=== PATIENT | female | born 1985 | race Caucasian/White ===

== ENCOUNTER 2022-12-15 08:48 | Outpatient (AMB) | payer OTHER, SELFPAY ==
--- NOTE | 2022-12-15 08:51 | A.OFFPC_ITS ---
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: No Accompanied by: Self / Same As Patient Allergies morphine Adverse Reaction (Intermediate, Verified 12/15/22 09:07) Nausea Medication List - Last Reconciled 12/15/22 by Anita Fountain MD acyclovir 400 mg PO BID medroxyprogesterone (Depo-Provera) 150 mg IM [id number] Tobacco use date assessed: 12/15/22 Dental Screening Dental Screen Date: 12/15/22 Did you have a dental visit in the last 12 months?: No Did you have a dental problem in the last 6 months where you did not have access to dental care?: No Was dental information given to patient?: Patient has dentist HPI HPI Comments History of Present Illness Details This is a 37-year-old female with obesity, uncontrolled hypertension, anxiety and history of herpes simplex virus that comes today complaining of daytime sleepiness and severely dozing off while sitting and reading, watching TV, lying down to rest in the afternoon when circumstances permit and sitting quietly after lunch without alcohol with an [place] score Scale of 12 and I will order a sleep study. She has been having elevated blood pressure for quite some time but has ignore it. She is a smoker and was advised to quit. She was also advised on cut down on drinking alcohol. I will start her on losartan and I will start her on sertraline for her anxiety. She is obese with a BMI of 34.8 and was advised to diet and exercise to reach BMI goal less than 30. Has occasional headaches and palpitations. Has profuse sweating. At present +thyroid is has been stable with acyclovir daily for suppression. PFSH Surgical History No pertinent past surgical history Family History Mother Diabetes Hypertension Father Hypertension Anxiety Mental health disorder Social History Housing: Apartment Alcohol intake: current Alcohol intake frequency: a few times a week Alcohol type: beer Patient Tobacco Use Status: Current everyday Tobacco user Tobacco use type: Cigarette Cigarette Packs Per Day: 1 e-Cigarette/Vaping Use: Never Used Second Hand Smoke Exposure: No service: No Current occupational status: employed Current occupational exposures/hazards: No Cognitive needs: No Hearing needs: No Vision needs: Yes Questionnaire PHQ-9 Over the last 2 weeks, how often have you been bothered by any of the following problems? 1. Little interest or pleasure in doing things: not at all 2. Feeling down, depressed, or hopeless: not at all 3. Trouble falling or staying asleep, or sleeping too much: not at all 4. Feeling tired or having little energy: not at all 5. Poor appetite or overeating: not at all 6. Feeling bad about yourself - or that you are a failure or have let yourself or your family down: not at all 7. Trouble concentrating on things, such as reading the newspaper or watching television: not at all 8. Moving or speaking so slowly that other people could have noticed. Or the opposite - being so fidgety or restless that you have been moving around a lot more than usual: not at all 9. Thoughts that you would be better off or of hurting yourself in some way: not at all Total score: 0 Depression Screening Interpretation: Negative 64034 - PHQ-9 Billing: Yes Source: Developed by Drs. Sánchez Jama, Cheryl Yates, Praful Posada and colleagues, with an educational varsha from [employer]. Thrive Questionnaire Date Thrive assessed: 12/15/22 I am a: Patient What is your living situation today?: I have a steady place to live Within the past 12 months, did the food you bought not last and you didn't have the money to get more?: Never true Within the past 12 months, did you worry whether your food would run out before you got money to buy more?: Never true Do you have trouble paying for medicines?: No Do you have trouble getting transportation to medical appointments?: No Do you have trouble paying your heating and electricity bill?: No Do you have trouble taking care of your child, family member or friend?: No Do you have trouble with day-to-day activities such as bathing, preparing meals, shopping, managing finances, etc.?: No Are you currently unemployed and looking for a job?: No Are you interested in more education?: No Please select the resources that you would like help with: None Currently or been in a relationship where the following occur: no concerns reported AUDIT C Alcohol Use Questionnaire (AUDIT-C) 1. How often do you have a drink containing alcohol?: 2-3 times a week 2. How many drinks containing alcohol do you have on a typical day when you are drinking?: 1 or 2 3. How often do you have six or more drinks on one occasion?: Never Total Score: 3 Score Reviewed/Action Taken: Yes WADE-7 AMB Questionnaire WADE-7 Date WADE - 7 assessed: 12/15/22 Feeling nervous, anxious, or on edge: 3 = Nearly every day Not being able to stop or control worryin = Several days Worrying too much about different things: 2 = More than half the days Trouble relaxin = Not at all Being so restless that it is hard to sit still: 0 = Not at all Becoming easily annoyed or irritable: 1 = Several days Feeling afraid as if something awful might happen: 1 = Several days Total WADE-7 score (0-4 normal; 5-9 mild; 10-14 moderate; 15-21 severe): 8 Source: Developed by Drs. Sánchez Jama, Cheryl Yates, Praful Posada and colleagues, with an educational varsha from [employer]. WADE-7 Assessment Billing WADE-7 Assessment Tool: WADE-7 Assessment 94128 Review of Systems Const All systems reviewed & are unremarkable except as noted in HPI and below Eyes Reports no additional complaints, Denies change in vision and Denies other visual disturbances Card Denies chest pain at rest, Denies chest pain with activity, Denies edema, Denies irregular heart rhythm, Denies claudication, Denies dyspnea, Denies dyspnea on exertion, Denies orthopnea, Denies paroxysmal nocturnal dyspnea and Denies slow heart rate Resp Denies cough, Denies dyspnea and Denies dyspnea on exertion GI Denies abdominal pain, Denies change in bowel habits, Denies excessive flatus, Denies nausea and Denies vomiting Denies urinary incontinence, Denies urinary hesitancy and Denies urinary urgency Musc Denies abnormal gait, Denies atrophy, Denies deformity and Denies limited range of motion Skin/Breast Denies bleeding lesions, Denies changing lesions and Denies rash Neuro Denies abnormal gait and Denies lack of coordination Psych Reports anxiety Physical exam (Primary Care) Vital Signs: Last Vital Signs BP 178/120 H 12/15/22 08:52 BMI result Body Mass Index 34.8 Tobacco/Smoking Status: Tobacco use Status Tobacco use date assessed 12/15/22 12/15/22 08:59 Patient Tobacco Use Status Current everyday Tobacco 12/15/22 08:59 Tobacco use type Cigarette 12/15/22 08:59 e-Cigarette/Vaping Use Never Used 12/15/22 08:59 PHQ-9: PHQ-9 Score PHQ-9: Total score 0 12/15/22 09:15 Depression Screening Interpretation: Negative Thrive Assessment: Date of Thrive Assessment Date Thrive assessed 12/15/22 12/15/22 08:59 Currently or been in a relationship where the following occur: no concerns reported Eyes General: appearance normal, both eyes and all related structures Eyelids: Yes eyelids normal Conjunctivae: conjunctivae normal Neck Neck: Yes normal visual inspection and Yes supple Resp Effort & Inspection: normal respiratory effort Auscultation: clear to auscultation bilaterally Cardio Jugular venous distension: no JVD Rate: regular rate Rhythm: regular rhythm Heart sounds: S1 normal heart sound present and S2 normal heart sound present Extrem General: Yes full ROM Assessment and Plan Assessment & Plan (1) Uncontrolled hypertension: Code(s): I10 - Essential (primary) hypertension Plan: Start losartan. Blood pressure will be recheck in 3 weeks by nurse navigator. Labs ordered. Ultrasound renal ordered to rule out adult polycystic kidney disease. Doppler ordered to rule out renal artery stenosis. Blood pressure goal is equal or less than 130/80. (2) Daytime sleepiness: Code(s): R40.0 - Somnolence Plan: Home sleep study ordered. (3) WADE (generalized anxiety disorder): Code(s): F41.1 - Generalized anxiety disorder Plan: Start sertraline. (4) HSV (herpes simplex virus) infection: Code(s): B00.9 - Herpesviral infection, unspecified Plan: Continue acyclovir for chronic suppression. Orders: Orders Aldost/Renin Today I10 - Essential (primary) hypertension Catecholamines, Frac., Plasma Today I10 - Essential (primary) hypertension Catecholamines,Frac.,Random Ur Today I10 - Essential (primary) hypertension Comprehensive [place]. Panel Fast Today I10 - Essential (primary) hypertension Lipid Panel Today E66.9 - Obesity, unspecified Metanephrines, Plasma Today I10 - Essential (primary) hypertension Renin Today I10 - Essential (primary) hypertension Thyroid Stimulating Hormone Today I10 - Essential (primary) hypertension Metanephrines, Random Urine Today I10 - Essential (primary) hypertension ECG 12 lead EKG Today I10 - Essential (primary) hypertension Complete Blood Count Auto Diff Today E66.9 - Obesity, unspecified US renal BI Today I10 - Essential (primary) hypertension US renal doppler Today I10 - Essential (primary) hypertension RT home sleep study Today R40.0 - Somnolence Microalbumin, Random (w Creat) Today E11.9 - Type 2 diabetes mellitus without complications, I10 - Essential (primary) hypertension Medications: New sertraline 25 mg PO DAILY 90 days 90 tabs 1RF F41.1 - Generalized anxiety disorder losartan 25 mg PO DAILY 90 days 90 tabs 1RF I10 - Essential (primary) hyperte nsion Coding Level of Care Code New Pt Level 4 (61456) Diagnoses Uncontrolled hypertension I10 Daytime sleepiness R40.0 WADE (generalized anxiety disorder) F41.1 HSV (herpes simplex virus) infection B00.9 Additional Codes WADE-7 Assessment Billing - WADE-7 Assessment Tool: WADE-7 Assessment 82125 ([id number]) Time Spent (min) 25
[2022-12-15 08:52] VITALS: BP 178/120; BMI 34.8
[2022-12-15 10:06] VITALS: BP 180/100
== END 2022-12-15 09:25 | disposition home or self-care (01) ==
PROVIDERS: PCP Internal Medicine; Visit Provider Internal Medicine
DX: I10 Essential (primary) hypertension (principal); R40.0 Somnolence; F41.1 Generalized anxiety disorder; B00.9 Herpesviral infection, unspecified
CPT/HCPCS: 99204

== ENCOUNTER 2022-12-15 09:48 | Outpatient (REF) | payer OTHER, SELFPAY ==
[2022-12-15 10:30] LABS: MANUAL DIFF FLAG NO
[2022-12-15 11:30] LABS: Basophils Absolute Auto 0.1 X10*3/uL (0.0-0.2); Basophils Percent Auto 0.7 % (0-2); Eosinophils Absolute Auto 0.2 X10*3/uL (0.0-0.4); Eosinophils Percent Auto 1.6 % (0-4); Hematocrit 47.1 % (37.0-47.0); Hemoglobin 15.9 g/dl (12.0-16.0); Imm Gran Abs Auto 0.09 X10*3/uL (0.00-0.03); Lymphocytes Absolute Auto 1.7 X10*3/uL (1.2-4.9); Lymphocytes Percent Auto 18.4 % (20-40); Mean Corpuscular HGB Conc 33.8 g/dl (31.0-35.0); Mean Corpuscular Hemoglobin 31.6 pg (27.0-33.0); Mean Corpuscular Volume 93.6 fL (80.0-98.0); Mean Platelet Volume 9.4 fL (9.4-12.3); Monocytes Absolute Auto 0.6 X10*3/uL (0.1-1.2); Monocytes Percent Auto 6.2 % (2-11); Neutrophils Absolute Auto 6.8 x10*3/uL (2.0-8.3); Neutrophils Percent Auto 72.1 % (45-73); Platelet Count 304 X10*3/uL (160-400); Red Blood Count 5.03 X10*6/uL (4.20-5.50); Red Cell Distribution Width 13.1 % (11.0-16.0); White Blood Count 9.4 X10*3/uL (4.8-10.8)
[2022-12-15 12:53] LABS: Alanine Aminotransferase 51 U/L (0-31); Albumin Level 4.2 g/dL (3.5-5.0); Alkaline Phosphatase 79 U/L (39-117); Anion Gap 14 (12-20); Aspartate Amino Transferase 41 U/L (5-31); Bilirubin Total 0.3 mg/dL (0.0-1.0); Blood Urea Nitrogen 12 mg/dL (9-16); Calcium 9.6 mg/dL (8.4-10.2); Carbon Dioxide 23 mmol/L (22-29); Chloride 107 mmol/L (96-108); Cholesterol 237 mg/dL (<200); Estimated Glomerular Filt Rate > 60; Glucose Fasting 102 mg/dL (60-99); HDL Cholesterol 50 mg/dL (>40); LDL Cholesterol Calculated 145 mg/dL (<100); Potassium 4.4 mmol/L (3.3-5.1); Sodium 140 mmol/L (135-145); Total Protein 7.1 g/dL (6.5-8.0); Triglycerides 210 mg/dL (<150)
[2022-12-15 12:59] LABS: Thyroid Stimulating Hormone 2.97 uIU/mL (0.32-4.0)
[2022-12-15 13:07] LABS: Creatinine Urine 154.13 mg/dL
[2022-12-19 13:34] LABS: Metanephrine, Free 48 pg/mL (<=57); Normetanephrines, Free 142 pg/mL (<=148); Total Metanephrine, Free 190 pg/mL (<=205)
[2022-12-22 12:59] LABS: Catecholamine,Calc Tot.(E+NE) 88 mcg/g cr (9-74); Creatinine Random Urine 123 mg/dL (20-275); Creatinine, Random Urine 123 mg/dL (20-275); Dopamine, Random Urine 405 mcg/g cr (40-390); Epinephrine, Random Urine 17 mcg/g cr (2-16); Metanephrine, Free Rand Ur 116 mcg/g cr (32-134); Norepinephrine, Random Urine 71 mcg/g cr (7-65); Normetanephrine, Free Rand Ur 609 mcg/g cr (67-390); Total Metanephrine, Free RU 725 mcg/g cr (94-445)
[2022-12-22 15:52] LABS: Aldosterone/Renin Ratio 10.3 Ratio (0.9-28.9); Plasma Renin Activity 0.78 ng/mL/h (0.25-5.82)
[2022-12-31 14:28] LABS: Catecholamine Frac, Total 591 pg/mL
== END 2022-12-15 09:49 | disposition home or self-care (01) ==
LOC: HO.LAB 09:48
PROVIDERS: PCP Internal Medicine; Visit Provider Internal Medicine
DX: E66.9 Obesity, unspecified (principal); E11.9 Type 2 diabetes mellitus without complications; I10 Essential (primary) hypertension
CPT/HCPCS: 36415; 80053; 80061; 82043; 82088; 82384; 83835; 84244; 84443; 85025

== ENCOUNTER 2023-02-28 09:01 | Emergency (ER) | payer OTHER, SELFPAY ==
--- NOTE | ~2023-02-28 | XR_ITS ---
EXAMINATION: XR LEFT FOOT XR LEFT ANKLE CLINICAL INFORMATION: Pain and trauma status post fall COMPARISON: None available. TECHNIQUE: PA, lateral, and oblique views of the left foot and left ankle were acquired. FINDINGS: There is no evidence of acute fracture or subluxation of the left foot or the left ankle. No bone lesions are evident. The talar dome and ankle mortise are intact. An os trigonum is incidentally noted. XR/XR foot LT min 3V IMPRESSION: No acute fracture or subluxation of the left foot or left ankle.
--- NOTE | ~2023-02-28 | XR_ITS ---
EXAMINATION: XR LEFT FOOT XR LEFT ANKLE CLINICAL INFORMATION: Pain and trauma status post fall COMPARISON: None available. TECHNIQUE: PA, lateral, and oblique views of the left foot and left ankle were acquired. FINDINGS: There is no evidence of acute fracture or subluxation of the left foot or the left ankle. No bone lesions are evident. The talar dome and ankle mortise are intact. An os trigonum is incidentally noted. XR/XR ankle LT min 3V IMPRESSION: No acute fracture or subluxation of the left foot or left ankle.
[2023-02-28 09:05] VITALS: BP 163/118; PULSE 83; RESP 19; TEMP 36.6; O2SAT 98; BMI 33.5
[2023-02-28] MEDS: Acetaminophen 325 MG TABLET 975 MG PO (09:24)
--- NOTE | 2023-02-28 09:25 | ED_ITS ---
HPI - Extremity Injury (Lower) General Chief Complaint: Extremity Injury, Lower Stated Complaint: L Ankle Injury 02/27/23 Time Seen by Provider: 02/28/23 09:12 Source: patient Mode of arrival: ambulatory Limitations: no limitations History of Present Illness HPI Narrative: Patient is a 37-year-old female presenting to the emergency department with complaint of left lateral ankle pain and swelling since last night. States that she was cleaning of her living room last night and tripped over a dog toy, twisting her ankle. States pain was manageable and went to bed last night but when she woke this morning pain and swelling have increased. She took 400 mg ibuprofen prior to arrival. Denies any numbness, tingling, or weakness to foot. MD complaint: ankle injury Onset (ago): hour(s) Injury: Left: ankle Type of Injury: unknown Place: home Severity: moderate Relieving factors: rest Exacerbating factors: movement and palpation Context: other (Tripped over a dog toy) Associated symptoms: swelling and able to partially bear weight Other symptoms: none Treatments prior to arrival: NSAIDS Related Data Home Medications Medication Instructions Recorded Confirmed medroxyprogesterone 150 mg/mL 150 mg IM [id number] 12/15/22 12/15/22 intramuscular suspension (Depo-Provera) Previous Rx's Medication Instructions Recorded atorvastatin 10 mg tablet 10 mg PO BEDTIME 90 days #90 tabs 12/15/22 losartan 25 mg tablet 25 mg PO DAILY 90 days #90 tabs 12/15/22 sertraline 25 mg tablet 25 mg PO DAILY 90 days #90 tabs 12/15/22 acyclovir 400 mg tablet 400 mg PO BID 90 days #180 tabs 12/20/22 Allergies Allergy/AdvReac Type Severity Reaction Status Date / Time morphine AdvReac Intermediate Nausea Verified 02/28/23 09:05 Review of Systems Review of Systems: As per HPI. Yes all other systems are reviewed and are negative Constitutional: Constitutional: Reports as per HPI PMFSH Past Medical History Surgical History No pertinent past surgical history Family History Family History Mother Diabetes Hypertension Father Hypertension Anxiety Mental health disorder Social History Social History Housing: Apartment Alcohol intake: current Alcohol intake frequency: a few times a week Alcohol type: beer Patient Tobacco Use Status: Current everyday Tobacco user Tobacco use type: Cigarette Cigarette Packs Per Day: 1 e-Cigarette/Vaping Use: Never Used Second Hand Smoke Exposure: No Advance Directives: No Advance Directives Information Provided: No service: No Current occupational status: employed Current occupational exposures/hazards: No Cognitive needs: No Hearing needs: No Vision needs: Yes Physical Exam Vital Signs: Vital Signs: Last Vital Signs Temp 98 F 02/28/23 09:05 Pulse 83 02/28/23 09:05 Resp 19 02/28/23 09:05 BP 163/118 H 02/28/23 09:05 Pulse Ox 98 02/28/23 09:05 O2 Del Method Room Air 02/28/23 09:05 BMI result Body Mass Index 33.5 Vital signs have been reviewed and appear to be correct. Blood pressure elevated. Heart rate normal. Respiratory rate normal. Temperature normal. Oxygen saturation normal. Const: General: cooperative, healthy appearing and no acute distress Orientation/consciousness: oriented to person, oriented to place, oriented to time and patient oriented x3 Limitations: no limitations HEENT: Head: Yes normocephalic and Yes atraumatic Ears: external ears normal General nose exam: Normal external nose present Face and sinus: Yes face symmetric Mouth: oropharynx normal and moist mucous membranes Throat: Yes uvula midline Eyes: Pupils: Equal, round and reactive pupils present Neck: Neck: Yes normal visual inspection and Yes supple Resp: Effort & Inspection: normal respiratory effort and able to speak in complete sentences Auscultation: clear to auscultation bilaterally Cardio: Rate: regular rate Rhythm: regular rhythm Heart sounds: S1 normal heart sound present and S2 normal heart sound present Skin: General skin exam: elasticity normal and turgor normal Neuro: General: oriented to person, oriented to place, oriented to time, patient oriented x3, moves all extremities, no focal motor deficits and CN's II- XI intact bilaterally Cranial nerves: Yes Equal, round and reactive pupils present Cognition (Neuro): normal cognition Extrem: General: Yes full ROM, Yes no pedal edema and Yes no calf tenderness Left lower extremity: ankle Details: tenderness Location: of the lateral malleolus, swelling Details: laterally and normal ROM; no ecchymosis and foot Details: normal capillary refill, tenderness Location: of the dorsal foot Location: laterally, toes with normal ROM and vascular exam Details: dorsalis pedis pulse present and posterior tibial pulse present Psych: Mental Status: mental status grossly normal Affect: normal affect Thought process: Normal thought process present Medications Administered Discontinued Medications Generic Name Dose Route Start Last Admin Trade Name Hope PRN Reason Stop Dose Admin Acetaminophen 975 mg 02/28/23 09:15 02/28/23 09:24 Acetaminophen 325 Mg Tablet PO 02/28/23 09:16 975 mg ONCE ONE Administration Medical Decision Making Medical Decision Making MDM Narrative: Patient is a 37-year-old female presenting to the emergency department with complaint of left lateral ankle pain and swelling since last night. On exam patient is awake, A+Ox3, hypertensive, VS otherwise WNL, afebrile, normal neurological exam without focal deficits, physical exam findings as above. Given reported symptoms and physical exam findings, initial differential includes contusion, strain, sprain, fracture. X-ray notable for no evidence of fracture to left ankle or foot. My interpretation is in agreement with the radiologist's interpretation. Ordered ankle stirrup as well as crutches and crutch teaching. Advised patient to alternate Tylenol and ibuprofen as needed for pain, elevate foot while at rest and apply ice intermittently throughout the day. Instructed patient to follow-up with PCP. Will refer to Ortho for any ongoing symptoms. Return precautions discussed at bedside. Patient verbalized understanding of and agreement with plan. Differential Diagnosis Differential Diagnoses: The differential diagnosis associated with the presentation includes As per MDM. Independent Interpretation I performed an independent interpretation of an: Plain X-Ray Interpretation: No evidence of fracture to left ankle or foot Radiology Impression Discussion of test interpretation with radiology: I have reviewed the radiologist's reading. Radiologist Impression: XR/XR foot LT min 3V IMPRESSION: No acute fracture or subluxation of the left foot or left ankle. External Record Review External record reviewed: Inpatient record, Office record and Outpatient record Discharge Plan Discharge Clinical Impression: Left ankle sprain Qualifiers: Encounter type: initial encounter Involved ligament of ankle: unspecified ligament Qualified Code(s): S93.402A - Sprain of unspecified ligament of left ankle, initial encounter Patient Disposition: Home, Self-Care Instructions: Ankle Sprain (DC), Crutch Instructions (ED), Ankle Stirrup Splint (ED), R.I.C.E. Treatment (ED) Additional Instructions: You have been evaluated in the emergency department today for ankle pain. Your evaluation did not find evidence of medical conditions requiring emergent intervention at this time. Your pain is due to an ankle sprain. We have provided crutches for you to use while your ankle heals. Please rest, ice, and elevate your ankle, and resume normal activities as tolerated. We recommend you take 600mg ibuprofen every 6 hours or 650mg Tylenol every 6 hours as needed for pain. If needed you can alternate these medications as they take 1 medication every 3 hours. For instance at noon take ibuprofen, then at 3:00 p.m. take Tylenol, then at 6:00 p.m. take ibuprofen. Please schedule an appointment for follow-up with your primary care provider this week. Return to the emergency department if you experience worsening pain, numbness, tingling, change of color in your foot, or any other concerning symptoms. Prescriptions: No Action atorvastatin 10 mg tablet 10 mg PO BEDTIME 90 Days Qty: 90 0RF acyclovir 400 mg tablet 400 mg PO BID 90 Days Qty: 180 1RF medroxyprogesterone [Depo-Provera] 150 mg/mL suspension 150 mg IM [id number] sertraline 25 mg tablet 25 mg PO DAILY 90 Days Qty: 90 1RF losartan 25 mg tablet 25 mg PO DAILY 90 Days Qty: 90 1RF Stand Alone Forms: Work/School Release
--- NOTE | 2023-02-28 10:09 | PC.NURSE ---
Addendum entered by Vesta Swann RN 02/28/23 10:12: pt awaiting ankle xray not cxr. Original Note: patient a&ox3, awaiting cxr and provider, call pena within reach, will continue to monitor.
== END 2023-02-28 10:30 | disposition home or self-care (01) ==
PROVIDERS: Emergency Provider Emergency Medicine; PCP Internal Medicine
DX: S93.402A Sprain of unspecified ligament of left ankle, initial encounter (principal); W22.8XXA Striking against or struck by other objects, initial encounter; Y93.E9 Activity, other interior property and clothing maintenance; Y92.039 Unspecified place in apartment as the place of occurrence of the external cause; Y99.9 Unspecified external cause status
CPT/HCPCS: 73610; 73630; 99283

== ENCOUNTER 2025-01-22 09:01 | Outpatient (AMB) | payer OTHER, SELFPAY ==
[2025-01-22 09:15] VITALS: BMI 30.4
--- NOTE | 2025-01-22 09:15 | MHC.OFFVIS ---
Vital Signs 01/22/25 09:15 Height 5 ft 8 in Weight 200 lb BMI 30.4 Intake Visit Reasons: right big toe ingroing toe nail Intake Note: Yesica is a 39 year old female who presents today as a new patient for an evaluation of her ingrown toe nail of the right hallux. She states this occurred within a couple of weeks after getting a pedicure. Pt mentions she had removed the ingrown nail herself however she complains of pain located on the toe nail. She has tried Epson salt soaks and ibuprofen as needed for her pain. Allergies morphine Adverse Reaction (Intermediate, Verified 01/22/25 09:15) Nausea Medication List - Last Reconciled 01/22/25 by Ya Velasco DPM medroxyprogesterone (Depo-Provera) 150 mg IM [id number] HPI Comments Details: The patient is a 39-year-old female with a past medical history as seen below presenting with right hallux pain and discomfort due to an ingrown toenail. The issue began in August following a pedicure where the nail was improperly cut, leading to pain and the development of an ingrown toenail to bilateral nail border. The patient attempted self-care measures such as soaking and cutting the nail at home, with the effectiveness on the medial border but ineffective to the lateral border. The patient reports that the nail has become thickened and painful, particularly in the middle, and she has been unable to wear closed shoes comfortably. She has been wearing open-toed shoes to alleviate pressure and pain. The patient denies any previous ingrown toenails. She denies any other inciting pedal injuries. Denies any current nausea, vomiting, fever, or chills. Patient was accompanied by her boyfriend. [facility] Medical History (Updated 01/22/25 @ 09:38 by Ya Velasco DPM) Nail disorder Pain of right great toe Ingrowing nail, right great toe Surgical History No pertinent past surgical history Family History Mother Diabetes Hypertension Father Hypertension Anxiety Mental health disorder Social History Housing: Apartment Alcohol intake: current Alcohol intake frequency: a few times a week Alcohol type: beer Patient Tobacco Use Status: Current everyday Tobacco user Tobacco use type: Cigarette Cigarette Packs Per Day: 1 e-Cigarette/Vaping Use: Never Used Second Hand Smoke Exposure: No service: No Current occupational status: employed Current occupational exposures/hazards: No Cognitive needs: No Hearing needs: No Vision needs: Yes Review of Systems Const Details: - Musculoskeletal: Reports pain in the lateral border and dorsal aspect of the right hallucal toenail. - Dermatological: Reports thickening and ingrowing of the right hallucal toenail, denies any other skin changes. Physical Exam Vital Signs: BMI result Body Mass Index 30.4 Extrem Other: Right lower extremity focused physical exam: Derm: Ingrowing nail loaded to the lateral border of the right hallux with increased incurvation and minimal edema noted to the lateral border. No purulence, erythema or drainage noted. Remaining toenails within normal limits of length with mild thickness. No open lesions abrasions or wounds noted. No ecchymosis or discoloration noted. Vascular: DP/PT pulses palpable. Capillary refill time less than 3 seconds. Temperature gradient warm to warm. Pedal hair absent. No varicosities noted. Neuro: Protective sensation is grossly intact. MSK: Pain on palpation to the lateral and dorsal aspect of the hallucal nail. No pain on palpation to the medial aspect of the hallucal nail. Range of motion of the forefoot within normal limits. Range of motion of the hindfoot and ankle within normal limits. No crepitus noted. No fluctuance noted. Non-antalgic gait unassisted. Office Procedures AMB Debridement/Avulsion Podia Details: Procedure: Right hallux partial nail avulsion of the lateral border Cleansed right hallux with alcohol swab and injected 15cc of 1% lidocaine plain in a hallux block fashion. Next applied a tourniquet to the right hallux and then cleansed the right hallux with Betadine. Attention was drawn to the lateral border of the right hallux and a Glidden was utilized to free the offending nail border from the nail bed. Next an French anvil was utilized to trim and cut the offending nail border and a hemostat was used to remove the offending nail border completely. A curette was used to ensure all spicules of the nail were removed from the nail bed. Triple antibiotic ointment, a bandaid, and Coban was then applied to the right hallux. Procedure was done with no incidents. Provided patient with aftercare instructions. [id number] Partial/Total nail avulsion (1 nail) Procedure code (CPT) selection complete Office Meds lidocaine HCl 10 mg/mL (1 %) injection solution Performing Provider: Ya Velasco DPM Performing Location: [facility] Administered by: Ya Velasco DPM on 01/22/25 09:45 Dose Route Admin Location Dispensed Lot Number Expiration Date [facility] [employer] 15 mL subcut 15 mL [id number] [employer] Total Dispensed Waste 15 mL 0 % Triple Antibiotic 3.5 mg-400 unit-5,000 unit topical ointment packet Performing Provider: Ya Velasco DPM Performing Location: [facility] Administered by: Ya Velasco DPM on 01/22/25 09:45 Dose Route Admin Location Dispensed Lot Number Expiration Date [facility] [employer] 1 appl topical 1 appl [id number] [employer] povidone-iodine 10 % topical swab Performing Provider: Ya Velasco DPM Performing Location: [facility] Administered by: Ya Velasco DPM on 01/22/25 09:45 Dose Route Admin Location Dispensed Lot Number Expiration Date [facility] [employer] 1 appl topical 1 appl [id number] [employer]. ethyl chloride 100 % topical spray Performing Provider: Ya Velasco DPM Performing Location: [facility] Administered by: Ya Velasco DPM on 01/22/25 09:45 Dose Route Admin Location Dispensed Lot Number Expiration Date [facility] [employer] 3 appl topical 116 mL [id number] [employer]. Assessment & Plan Assessment & Plan (1) Ingrowing nail, right great toe: Code(s): L60.0 - Ingrowing nail Category: Medical (2) Pain of right great toe: Code(s): M79.674 - Pain in right toe(s) Category: Medical (3) Nail disorder: Code(s): L60.9 - Nail disorder, unspecified Category: Medical Plan Patient was informed and verbally consented to the use of an ambient scribe for clinic note documentation during this visit. I discussed with the patient the diagnosis of an ingrown toenail and the recommended procedure of partial nail avulsion to alleviate the condition. We talked about the risks and benefits of the procedure, including the potential for pain relief and the importance of preventing infection. I explained the post-procedure care, including keeping the bandage on for 24 hours and soaking the foot in Epsom salt and warm water and appying neosporin and a bandaid to the area. The patient was informed about the use of ibuprofen for pain management and the need for a follow-up appointment in two weeks to ensure proper healing. - Performed partial nail avulsion of lateral border of the right hallux to remove the ingrown portion of the nail. - Instructed the patient to keep bandage on for 24 hours and may start after care protocol tomorrow. - Prescribed ibuprofen for pain management post-procedure prn. - Patient may be WBAT to the RLE. - Patient is to avoid tight-fitting shoes. RTC in 2 weeks for re-evaluation post procedure. Orders: Orders AMB Debridement/Avulsion Podiatry Today L60.0 - Ingrowing nail, L60.9 - Nail disorder, unspecified, M79.674 - Pain in right toe(s) Medications: New ibuprofen 600 mg PO Q8H PRN 20 tabs 0RF pain (scale score 4-6) M79.674 - Pain in right toe(s) Coding Level of Care Code New Pt Level 4 (04661) Diagnoses Ingrowing nail, right great toe L60.0 Pain of right great toe M79.674 Nail disorder L60.9 CPT Codes Skin Debridement - CPT: 58826 Partial/Total nail avulsion (1 nail) ([id number]) Time Spent (min) 60
== END 2025-01-22 10:28 | disposition home or self-care (01) ==
PROVIDERS: PCP Internal Medicine; Visit Provider Student in an Organized Health Care Education/Training Program
DX: L60.0 Ingrowing nail (principal); M79.674 Pain in right toe(s); L60.9 Nail disorder, unspecified
CPT/HCPCS: 11730; 99204

== ENCOUNTER → 2025-01-22 09:01 | Outpatient (BNVA) | payer OTHER, SELFPAY | PROVIDERS: PCP Internal Medicine; Visit Provider Student in an Organized Health Care Education/Training Program | DX: L60.0 Ingrowing nail (principal); M79.674 Pain in right toe(s); L60.9 Nail disorder, unspecified | CPT/HCPCS: 11730; J2003 ==

== ENCOUNTER 2025-02-06 13:53 | Outpatient (AMB) | payer OTHER, SELFPAY ==
--- NOTE | 2025-02-06 14:08 | MHC.OFFVIS ---
Vital Signs 02/06/25 14:16 Height 5 ft 8 in Weight 200 lb BMI 30.4 Intake Visit Reasons: follow up PNA right hallux Intake Note: Yesica is a 39 year old female who presents to the office today for a follow up PNA right hallux. At last visit partial nail avulsion of lateral border of the right hallux was performed to remove the ingrown portion of the nail. Pt states the recovery has been going well and she reports no concerns at this time. Allergies morphine Adverse Reaction (Intermediate, Verified 02/06/25 14:16) Nausea HPI Comments Details: The patient is a 39-year-old female presenting for a follow up S/P PNA of the right hallux lateral border. Patient states she has been consistent with the after care protocol including soaking in Epsom salt and warm water, and application of Neosporin and a bandaid. She states she initially had pain but now experiences very mild pain intermittently to the PNA site, worsened with pressure. She denies any purulence from the site. Denies any other pedal concerns or new injuries. [facility] Medical History (Updated 01/22/25 @ 09:38 by Ya Velasco DPM) Nail disorder Pain of right great toe Ingrowing nail, right great toe Surgical History No pertinent past surgical history Family History Mother Diabetes Hypertension Father Hypertension Anxiety Mental health disorder Social History Housing: Apartment Alcohol intake: current Alcohol intake frequency: a few times a week Alcohol type: beer Patient Tobacco Use Status: Current everyday Tobacco user Tobacco use type: Cigarette Cigarette Packs Per Day: 1 e-Cigarette/Vaping Use: Never Used Second Hand Smoke Exposure: No service: No Current occupational status: employed Current occupational exposures/hazards: No Cognitive needs: No Hearing needs: No Vision needs: Yes Review of Systems Const Details: - Musculoskeletal: Denies pain or swelling to the right hallux PNA site. All systems reviewed & are unremarkable except as noted in HPI and below Physical Exam Vital Signs: BMI result Body Mass Index 30.4 Extrem Other: Right lower extremity focused physical exam: Derm: Healed PNA site noted to the lateral nail border of the hallux. No purulence, erythema or drainage noted. Remaining toenails within normal limits of length with mild thickness. No open lesions abrasions or wounds noted. No ecchymosis or discoloration noted. Vascular: DP/PT pulses palpable. Capillary refill time less than 3 seconds. Temperature gradient warm to warm. Pedal hair absent. No varicosities noted. Neuro: Protective sensation is grossly intact. MSK: No pain on palpation to the PNA site of the right hallux. Range of motion of the forefoot within normal limits. Range of motion of the hindfoot and ankle within normal limits. No crepitus noted. No fluctuance noted. Non-antalgic gait unassisted. Assessment & Plan Assessment & Plan (1) Ingrowing nail, right great toe: Code(s): L60.0 - Ingrowing nail Category: Medical (2) Pain of right great toe: Code(s): M79.674 - Pain in right toe(s) Category: Medical (3) Nail disorder: Code(s): L60.9 - Nail disorder, unspecified Category: Medical Plan Patient was informed and verbally consented to the use of an ambient scribe for clinic note documentation during this visit. I discussed with the patient that the partial nail avulsion site to the right hallux lateral border appears to be healing well, with no signs of infection. I advised discontinuing Neosporin and bandage use unless redness or drainage occurs. We talked about the option of wearing a Band-Aid for protection with closed-toe shoes and provided a work note for wearing open-toe shoes if needed. - Discontinue use of Neosporin and bandage unless signs of infection appear. - Continue using a Band-Aid for protection if wearing closed-toe shoes. - Provided a return to work with a note allowing open-toe shoes if necessary. - Patient is to avoid tight-fitting shoes. RTC prn. Coding Level of Care Code Est Pt Level 3 (40110) Diagnoses Ingrowing nail, right great toe L60.0 Pain of right great toe M79.674 Nail disorder L60.9 Time Spent (min) 24
[2025-02-06 14:16] VITALS: BMI 30.4
== END 2025-02-06 14:52 | disposition home or self-care (01) ==
LOC: HO.HPODS 13:53
PROVIDERS: PCP Internal Medicine; Visit Provider Student in an Organized Health Care Education/Training Program
DX: L60.0 Ingrowing nail (principal); M79.674 Pain in right toe(s); L60.9 Nail disorder, unspecified
CPT/HCPCS: 99213